=== PATIENT | male | born 1995 | race Caucasian/White ===

== ENCOUNTER 2022-05-14 16:29 | Emergency (ER) | payer OTHER ==
[~2022-05-14] VITALS: Ht 177.8 cm; Wt 79.4 kg
--- NOTE | 2022-05-14 17:06 | NUR ---
DR MANCILLA AT BEDSIDE FOR EVAL
[2022-05-14] MEDS ORDERED: LIDOCAINE HCL/MPF 1% 30 ML VIAL IJ ONE (17:11)
[2022-05-14] MEDS ORDERED: LIDOCAINE 1%-EPI 1:100,000 20 ML VIAL ONE (17:14)
[2022-05-14] MEDS ORDERED: LIDOCAINE 1%-EPI 1:100,000 20 ML VIAL TP ONE (17:30)
[2022-05-14] MEDS ORDERED: TDAP [DIPH/PERTUSSIS/TET] 0.5 ML VIAL IM ONE (17:30)
--- NOTE | 2022-05-14 18:01 | NUR ---
button bradder at bedside for xray
[2022-05-14] MEDS ORDERED: IBUP-1953 PO (18:38)
[2022-05-14 18:46] VITALS: BP 149/109
== END 2022-05-14 18:46 | disposition home or self-care (01) ==
LOC: ER 16:32
DX: S61.215A Laceration without foreign body of left ring finger without damage to nail, initial encounter (principal); W45.8XXA Other foreign body or object entering through skin, initial encounter; Y93.89 Activity, other specified; Y92.89 Other specified places as the place of occurrence of the external cause; Y99.8 Other external cause status
CPT/HCPCS: 99283; 12002; 73140; A6403; J3490 ×2